=== PATIENT | male | born 1965 | race Caucasian/White ===

== ENCOUNTER 2016-08-16 16:02 | Inpatient (IN) | payer SELFPAY ==
[~2016-08-16] VITALS: Ht 188 cm; Wt 90.5 kg
[~2016-08-16 16:02] MED LIST: ALBU8.5H6 IH; TRAZ50TA15 PO
[2016-08-16] MEDS ORDERED: ONDANSETRON PF 4 MG/2 ML VIAL. IV ONE (16:15)
[2016-08-16] MEDS ORDERED: MULTIVIT INFUSN,ADULT 4,VIT K 10 ML, FOLIC ACID 1 MG, THIAMINE 100 MG in IV NORMAL SALI... IV SCH (16:15)
--- NOTE | 2016-08-16 16:24 | PHYS DOC ---
Past Medical History Past Medical History: COPD, Other Additional Past Medical Histor: ETOH Past Surgical History: Other Additional Past Surgical Histo: BACK AND KNEE SURGERY Alcohol Use: Heavy Drug Use: None Adult General HPI HPI 50 yo male who presents acutely altered after he states he took approximately 18 Xanax tablets and drank some beer approximately one hour prior to arrival. Patient's speech is slurred and difficult to understand. He denies any other illicit drug use. Patient does not appear to be in any acute distress this time. He denies any specific complaints. He is unable to describe why he did this. Review of Systems Review of Systems Constitutional: Denies fever or chills [] Eyes: Denies change in visual acuity, redness, or eye pain [] HENT: Denies nasal congestion or sore throat [] Respiratory: Denies cough or shortness of breath [] Cardiovascular: No additional information not addressed in HPI [] GI: Denies abdominal pain, nausea, vomiting, bloody stools or diarrhea [] : Denies dysuria or hematuria [] Musculoskeletal: Denies back pain or joint pain [] Integument: Denies rash or skin lesions [] Neurologic: Denies headache, focal weakness or sensory changes [] Endocrine: Denies polyuria or polydipsia [] Current Medications Current Medications Current Medications Medications (Trade) Dose Ordered Sig/Lesley Start Time Stop Time Status Last Admin Dose Admin Multivitamins/ Folic Acid/ Thiamine HCl/ Sodium Chloride (Infuvite Adult/ Iv Sodium Chloride 0.9% 1000ml Bag) 1,011.2 ml @ 1,000 mls/ hr Q1H 08/16/16 16:15 Ondansetron HCl 4 mg 4 mg 1X ONCE 08/16/16 16:15 08/16/16 16:16 DC 08/16/16 16:22 4 MG Sodium Chloride (Iv Sodium Chloride 0.9% 1000ml Bag) 1,000 ml @ 1,000 mls/hr 1X ONCE 08/16/16 16:45 08/16/16 17:44 08/16/16 16:22 1,000 MLS/HR Allergies Allergies Allergies Coded Allergies Type Severity Reaction Last Updated Verified No Known Drug Allergies 10/23/13 No Physical Exam Physical Exam Constitutional: Well developed, well nourished, no acute distress, non-toxic appearance. [] HENT: Normocephalic, atraumatic, bilateral external ears normal, oropharynx moist, no oral exudates, nose normal. [] Eyes: PERRLA, EOMI, conjunctiva normal, no discharge. [] Neck: Normal range of motion, no tenderness, supple, no stridor. [] Cardiovascular:Heart rate regular rhythm, no murmur [] Lungs & Thorax: Bilateral breath sounds clear to auscultation [] Abdomen: Bowel sounds normal, soft, no tenderness, no masses, no pulsatile masses. [] Skin: Warm, dry, no erythema, no rash. [] Back: No tenderness, no CVA tenderness. [] Extremities: No tenderness, no cyanosis, no clubbing, ROM intact, no edema. [] Neurologic: Alert and oriented X 2 (person and place), slurred speech, no focal deficits. [] Psychologic: Affect depressed, mood depressed. [] Current Patient Data Vital Signs Vital Signs Date Time Temp Pulse Resp B/P Pulse Ox O2 Delivery O2 Flow Rate FiO2 08/16/16 16:15 98.4 92 28 84/63 98 Room Air 98.4 Lab Values Laboratory Tests Test 08/16/16 16:05 08/16/16 16:35 White Blood Count 6.1x10^3/uL (4.0-11.0) Red Blood Count 4.73x10^6/uL (4.30-5.70) Hemoglobin 15.5g/dL (13.0-17.5) Hematocrit 45.4% (39.0-53.0) Mean Corpuscular Volume 96fL (79-100) Mean Corpuscular Hemoglobin 33pg (25-35) Mean Corpuscular Hemoglobin Concent 34g/dL (31-37) Red Cell Distribution Width 14.3% (11.5-14.5) Platelet Count 314x10^3/uL (140-400) Neutrophils (%) (Auto) 59% (31-73) Lymphocytes (%) (Auto) 31% (24-48) Monocytes (%) (Auto) 7% (0-9) Eosinophils (%) (Auto) 3% (0-3) Basophils (%) (Auto) 1% (0-3) Neutrophils # (Auto) 3.5x10^3uL (1.8-7.7) Lymphocytes # (Auto) 1.9x10^3/uL (1.0-4.8) Monocytes # (Auto) 0.4x10^3/uL (0.0-1.1) Eosinophils # (Auto) 0.2x10^3/uL (0.0-0.7) Basophils # (Auto) 0.1x10^3/uL (0.0-0.2) Sodium Level 142mmol/L (136-145) Potassium Level 4.0mmol/L (3.5-5.1) Chloride Level 105mmol/L (98-107) Carbon Dioxide Level 26mmol/L (21-32) Anion Gap 11 (6-14) Blood Urea Nitrogen 5mg/dL (8-26) L Creatinine 1.0mg/dL (0.7-1.3) Estimated GFR (Cockcroft-Gault) 79.4 BUN/Creatinine Ratio 5 (6-20) L Glucose Level 104mg/dL (70-99) H Calcium Level 8.3mg/dL (8.5-10.1) L Total Bilirubin 0.3mg/dL (0.2-1.0) Aspartate Amino Transferase (AST) 21U/L (15-37) Alanine Aminotransferase (ALT) 30U/L (16-63) Alkaline Phosphatase 51U/L (46-116) Total Protein 7.0g/dL (6.4-8.2) Albumin 3.5g/dL (3.4-5.0) Albumin/Globulin Ratio 1.0 (1.0-1.7) Salicylates Level < 2.8mg/dL (2.8-20.0) L Salicylate Last Dose Date Salicylate Last Dose Time Acetaminophen Level < 2mcg/ml (10-30) L Acetaminophen Last Dose Date Acetaminophen Last Dose Time Ethyl Alcohol Level 179mg/dL (0-10) H Urine Opiates Screen Neg (NEG) Urine Methadone Screen Neg (NEG) Urine Barbiturates Neg (NEG) Urine Phencyclidine Screen Neg (NEG) Urine Amphetamine/Methamphetamine Neg (NEG) Urine Benzodiazepines Screen Pos (NEG) Urine Cocaine Screen Neg (NEG) Urine Cannabinoids Screen Neg (NEG) Urine Ethyl Alcohol Pos (NEG) Laboratory Tests 08/16/16 16:05 Laboratory Tests 08/16/16 16:05 EKG EKG EKG as interpreted by me shows a sinus rhythm with a rate of 96 bpm. Intervals are normal. There are no obvious signs of ischemia. Radiology/Procedures Radiology/Procedures [] Course & Med Decision Making Course & Med Decision Making Pertinent Labs and Imaging studies reviewed. (See chart for details) This is 50-year-old male who apparently overdosed on 18 Xanax tablets with a coingestion of alcohol will be admitted for further evaluation and treatment. A banana bag and Zofran was given. His EKG did not reveal any abnormal findings. Patient will be observed in the department and likely admitted for his overdose. Laboratory workup reveals that he has enzymes diazepam and ethanol in his system. His blood ethanol level is 0.179. CBC and CMP are unremarkable. Patient is given an IV fluid bolus and a banana bag. His blood pressure improved. His mental status has not changed while he was observed in the department. At this time, I believe he is too altered to have a adequate psychiatric assessment and so I'll be admitting him for his mental status changes and he will receive an evaluation for his ongoing ongoing suicidal behavior. I discussed the case with Dr. Ivy who agreed to admit the patient for further evaluation and treatment. Dragon Disclaimer Dragon Disclaimer This electronic medical record was generated, in whole or in part, using a voice recognition dictation system. Departure Departure Impression: Primary Impression: Alcohol intoxication Additional Impressions: Benzodiazepine overdose Suicide attempt Disposition: ADMITTED INPATIENT Admitting Physician: Kusum Ivy Condition: STABLE Referrals: NO PCP (PCP) Problem Qualifiers GIN BUCHANAN DO Aug 16, 2016 16:24
[2016-08-16 16:35] LABS: CALCIUM 8.3 mg/dL (8.5-10.1); GFR 79.4
[2016-08-16 16:39] LABS: ETHANOL 179 mg/dL (0-10)
[2016-08-16 16:41] LABS: ALBUMIN 3.5 g/dL (3.4-5.0); TOTAL BILIRUBIN 0.3 mg/dL (0.2-1.0)
[2016-08-16 16:45] LABS: BASO # 0.1 x10^3/uL (0.0-0.2); BASO % 1 % (0-3); EOS % 3 % (0-3); HEMATOCRIT 45.4 % (39.0-53.0); HEMOGLOBIN 15.5 g/dL (13.0-17.5); LYMPH # 1.9 x10^3/uL (1.0-4.8); LYMPH % 31 % (24-48); MEAN CORPUSCULAR HEMOGLOBIN 33 pg (25-35); MEAN CORPUSCULAR HGB CONC 34 g/dL (31-37); MEAN CORPUSCULAR VOLUME 96 fL (79-100); MONO % 7 % (0-9); NEUT % 59 % (31-73); PLATELET COUNT 314 x10^3/uL (140-400); RED BLOOD COUNT 4.73 x10^6/uL (4.30-5.70); RED CELL DISTRIBUTION WIDTH 14.3 % (11.5-14.5); WHITE BLOOD COUNT 6.1 x10^3/uL (4.0-11.0)
[2016-08-16] MEDS ORDERED: IV NORMAL SALINE 1000ML BAG 1,000 ML IV ONE (16:45)
[2016-08-16 16:54] LABS: BARBITURATES NEG (NEG); BENZODIAZEPINES POS (NEG); CANNABINOIDS NEG (NEG); COCAINE NEG (NEG); METHADONE NEG (NEG); OPIATES NEG (NEG); PHENCYCLIDINE NEG (NEG)
[2016-08-16 16:55] LABS: ETHANOL, URINE POS (NEG)
[2016-08-16] MEDS: IV NORMAL SALINE 1000ML BAG 1,000 ML IV SCH (17:03)
[2016-08-16] MEDS ORDERED: ONDANSETRON PF 4 MG/2 ML VIAL. IV PRN (17:15)
--- NOTE | 2016-08-16 17:48 | ACF ---
Admission Forms Criteria SUBSTANCE ABUSE Clinical Indications for Admission to Inpatient Care (Place 'X' for any and all applicable criteria): Admission is indicated due to ANY ONE of the following(1)(2)(3)(4)(5): [ ]I. Delirium due to alcohol or sedative A withdrawal B ( Also use Delirium Criteria as appropriate)1,6,7 [ ]II. Alcohol or sedative withdrawal with high-risk indicator as manifested by ALL of the following1,3,6,7 [ ]a) Signs of withdrawal as indicated by ANY ONE of the following: [ ]i) Heart rate greater than 100 beats per minute [ ]ii) Nausea or vomiting [ ]iii) Other physical signs of alcohol or sedative withdrawal [ ]iv) Tremor [ ](v) Increased perspiration [ ]b) Elevated risk due to a historical or comorbid factor as indicated by ANY ONE of the following: [ ]i) History of delirium due to alcohol or sedative withdrawal [ ]ii) History of repetitive seizures due to alcohol or sedative withdrawal C [ ]iii) Intrinsic seizure disorder (epilepsy) [ ]iv) [ ]v) Comorbid medical condition that can be dangerously destabilized by alcohol or sedative withdrawal (eg, severe cardiac disease) [ ]III. Severe alcohol or sedative withdrawal that is unmanageable at lower level of care, as manifested by ALL of the following1,3,6,7 [ ]a) Marked signs of withdrawal as indicated by ANY ONE of the following: [ ]i) Heart rate greater than 120 beats per minute [ ]ii) Vomiting [ ]iii) Grossly visible tremor [ ]iv) Profuse perspiration [ ]v) Temperature greater than 38.3 degrees C (101 degrees F) [ ]vi) Other marked physical signs of alcohol or sedative withdrawal [ ]b) Signs of withdrawal which require inpatient treatment as indicated by ANY ONE of the following: [ ]i) Inadequate response to pharmacotherapy in emergency department or other appropriate lower level of care [ ]ii) Lower level of care not feasible or appropriate (eg, unavailable or inappropriate to patient condition or treatment history) [ ]IV. Severely complicated opioid withdrawal that requires oepmnh-[id number] care as manifested by ALL of the following 1,4,7,11 [ ]a) Vomiting or diarrhea due to opioid withdrawal [ ]b) Marked dehydration or electrolyte abnormality that cannot be corrected (to near normal) in an emergency department or other ambulatory setting (eg, serum K<2.5 mEq/L , serum Na <130 mEq/L [X]V. Acute toxicity or instability from substance use requiring inpatient care (eg, altered mental status, respiratory depression) that has had inadequate response to, or is judged inappropriate for, treatment at lower level of care (eg, emergency department, observation care) [ ]. Other inpatient medical or psychiatric care is needed due to risk or comorbidity as indicated by ALL of the following(18): [ ]a) Treatment is needed because of patient risk due to ANY ONE of the following: [ ]i) Medical condition (eg, severe cardiac disease) that requires 24-hour monitoring and treatment due to danger of destabilization by alcohol or sedative withdrawal is present [ ]ii) Imminent danger to self is present due to ANY ONE of the following(19)(20)(21): [ ]1) Imminent risk for recurrence of Suicide attempt or act of serious Harm to self is present as indicated by ALL of the following: [ ]A. There has been very recent Suicide attempt or deliberate act of serious Harm to self. [ ]B. There has not been Sufficient relief of the factors that precipitated the attempt or act. [ ]2) Current plan for suicide or serious Harm to self is present. [ ]3) Command auditory hallucinations for suicide or serious Harm to self are present. [ ]4) Patient has persistent Thoughts of suicide or serious Harm to self that cannot be adequately monitored at lower level of care due to ANY ONE of the following[E]: [ ]A. Insufficient behavioral care is available to meet patient needs (such as required provider or lower level facility is not available). [ ]B. Patient characteristics such as high impulsivity or unreliability are present. [ ]C. Environment does not support recovery. [ ]D. Ready access to lethal means [ ]iii) Imminent danger to others is present due to ANY ONE of the following(19)(23)(24): [ ]1) Imminent risk for recurrence of attempt to seriously Harm another is present as indicated by ALL of the following: [ ]A. There has been very recent attempt to seriously Harm another. [ ]B. There has not been Sufficient relief of factors that precipitated the attempt or act. [ ]2) Current plan for homicide or serious Harm to another is present. [ ]3) Command auditory hallucinations or paranoid delusions contributing to risk for homicide or serious Harm to another are present. [ ]4) Patient has persistent thoughts of homicide or serious Harm to another that cannot be adequately monitored at lower level of care because of ANY ONE of the following[E]: [ ]A. Insufficient behavioral care is available to meet patient needs (such as required provider or lower level facility is not available). [ ]B. High impulsivity or unreliability is present. [ ]C. Environment does not support recovery. [ ]D. Ready access to lethal means [ ]iv) Severe dysfunction in daily living related to substance use disorder as indicated by ANY ONE of the following(33): [ ]a) Extreme deterioration in social interactions (eg , threatening behaviors with little or no provocation) [ ]b) Complete withdrawal from all social interactions [ ]c) Complete neglect of self-care with associated impairment in physical status [ ]d) Extreme disruption in vegetative function (eg, life-sustaining functions such as eating) [ ]e) Complete inability to maintain any appropriate aspect of personal responsibility in any adult roles (eg, occupational, parental ) [ ]v) Other emotional, behavioral, or cognitive symptoms of sufficient severity to preclude ability to engage in recovery without 24-hour monitoring and treatment are present. [ ]vi) Patient requires monitoring due to substance use in combination with medical, psychiatric, or environmental factors that prevent adequate management at lower level of care as indicated by ALL of the following: [ ]1) Significant substance use effects, medical conditions, or psychiatric comorbidities are present as indicated by ANY ONE of the following [ ]A. Substance toxicity or withdrawal requires medical monitoring. [ ]B. Medical comorbidity requires medical monitoring for destabilization due to alcohol or sedative withdrawal. [ ]C. Emotional, behavioral, or cognitive symptoms of sufficient severity to limit or preclude ability to engage in treatment are present. [ ]2) Conditions, barriers, or environmental factors preventing treatment at lower level of care are present as indicated by ANY ONE of the following: [ ]A. Psychiatric comorbidity or opposition to treatment requires 24-hour setting to ensure adherence with medical treatment or adequate motivating interventions. [ ]B. Severe behavioral problems (eg, escalating relapse behaviors, acute psychiatric or substance use crisis, inability to recognize signs and symptoms of relapse ) require 24-hour setting for relapse prevention.[F] [ ]C. Living environment outside of 24-hour setting prevents recovery (eg, abuse, victimization, patient inability to cope). [ ]b Treatment situation and needs are appropriate for inpatient level ( instead of using lower level of care) as indicated by ANY ONE of the following( 25)(26)(27): [ ]i) Patient is unwilling to participate voluntarily and requires treatment (eg, legal commitment) in involuntary unit.(23) [ ]ii) Voluntary treatment at lower level is not feasible (eg, lower level care unavailable or inappropriate for patient condition). [ ]iii) Physical restraint, seclusion, or other involuntary control is needed (eg, actively violent patient for whom treatment in an involuntary unit is deemed necessary in accord with applicable medical and legal criteria).(23) [ ]iv) [id number] medical or nursing care to address symptoms and initiate interventions is required; specific need is identified. Extended stay beyond goal length of stay may be needed for: [ ]a) Onset of delirium [ ]b) Recurrent seizures [ ]c) Persistent severe alcohol or sedative withdrawal [ ]d) Persistent dangerous behavior The original [facility] content created by [employer] has been revised. The portions of the content which have been revised are identified through the use of italic text or in bold, and [facility] has neither reviewed nor approved the modified material. All other unmodified content is copyright [facility]. Please see references footnoted in the original [facility] edition 2016 Admission Criteria Met?: Yes CECY GIRARD Aug 16, 2016 17:48
[2016-08-16] MEDS ORDERED: LORAZEPAM 2 MG/ML VIAL IV PRN (19:15)
[2016-08-16] MEDS ORDERED: ALBUTEROL SULFATE 8GM INHALER. IH SCH (19:15)
[2016-08-16] MEDS ORDERED: ALPRAZOLAM 0.5 MG TABLET PO PRN (19:15)
[2016-08-16] MEDS ORDERED: ZOLPIDEM 5 MG TABLET. PO PRN (19:15)
[2016-08-16 19:26] VITALS: BP 99/65
--- NOTE | 2016-08-16 20:04 | PDOC1 ---
History and Physical Date of Admission Date of Admission DATE: 08/16/16 TIME: 19:59 Identification/Chief Complaint Chief Complaint suicide attempt Source Source: Caregiver, Chart review, Patient History of Present Illness History of Present Illness 50 y.o male with high likelihood of severe depression admitted for another SI. LAst admit was Feb 2016 by a colleague for the same. This time, he tried taking or maybe took already 18 tabs of xanax and alcohol, HE did test positive in UDS and etoh levels are 137 Pt is drowsy but able to talk a bit, VS otherwise ok Pt cant tell me clearly why he did it. I am unable to get any further hx from him,. He did say he does not see a psychiatrist. Looking at Feb admission, his left him ( for 31 yrs?) bec of this issue of his, Past Medical History Cardiovascular: No pertinent hx Pulmonary: COPD Psych: Depression Past Surgical History Past Surgical History: Other (unable to get) Family History Family History: Heart Disease, Hypertension Social History Smoke: No ALCOHOL: heavy Drugs: None Current Problem List Problem List Problems Medical Problems: (1) Alcohol intoxication Status: Acute (2) Benzodiazepine overdose Status: Acute (3) Suicide attempt Status: Acute Problems: Current Medications Current Medications Current Medications Multivitamins/ Folic Acid/ Thiamine HCl/ Sodium Chloride (Infuvite Adult/ Iv Sodium Chloride 0.9% 1000ml Bag) 1,011.2 ml @ 1,000 mls/ hr Q1H IV Last administered on 08/16/16 17:54; Start 08/16/16 at 16:15 Ondansetron HCl 4 mg 4 mg 1X ONCE IV Last administered on 08/16/16 16:22; Start 08/16/16 at 16:15; Stop 08/16/16 at 16:16; Status DC Sodium Chloride (Iv Sodium Chloride 0.9% 1000ml Bag) 1,000 ml @ 1,000 mls/hr 1X ONCE IV Last administered on 08/16/16 16:22; Start 08/16/16 at 16:45; Stop 08/16/16 at 17:44; Status DC Ondansetron HCl 4 mg 4 mg PRN Q8HRS PRN IV NAUSEA/VOMITING; Start 08/16/16 at 17:15; Stop 08/16/16 at 19:08; Status DC Sodium Chloride (Iv Sodium Chloride 0.9% 1000ml Bag) 1,000 ml @ 125 mls/hr Q8H IV ; Start 08/16/16 at 17:03; Stop 08/17/16 at 17:02 Ondansetron HCl 4 mg 4 mg PRN Q6HRS PRN IV NAUSEA/VOMITING; Start 08/16/16 at 19:06 Multivitamins/ Folic Acid/ Thiamine HCl/ Dextrose/Sodium Chloride (Infuvite Adult/ Iv D5% - 1/2 NS) 1,011.2 ml @ 100 mls/ hr DAILY IV ; Start 08/17/16 at 09:00 Alprazolam (Xanax) 0.5 mg Q8H PRN PO ANXIETY / AGITATION; Start 08/16/16 at 19: 15; Stop 08/16/16 at 19:15; Status DC Lorazepam (Ativan) 1 mg PRN Q4HRS PRN IV ANXIETY / AGITATION; Start 08/16/16 at 19:15; Stop 08/16/16 at 19:15; Status DC Chlordiazepoxide (Librium) 25 mg PRN Q6HRS PRN PO ANXIETY / AGITATION; Start at 19:15 Zolpidem Tartrate (Ambien) 5 mg PRN QHS PRN PO INSOMNIA; Start 08/16/16 at 19: 15; Stop 08/16/16 at 19:15; Status DC Albuterol Sulfate (Ventolin Hfa) 2 puff Q4H IH ; Start 08/16/16 at 19:15; Stop 08/16/16 at 19:23; Status DC Trazodone HCl (Desyrel) 50 mg HS PO ; Start 08/16/16 at 21:00 Albuterol Sulfate (Ventolin Neb Soln) 2.5 mg Q4HRS NEB ; Start 08/16/16 at 20:00 Active Scripts Active Reported Trazodone Hcl 50 Mg Tablet 50 Mg PO HS Albuterol Sulfate Hfa Inhaler (Albuterol Sulfate) 8.5 Gm Hfa.aer.ad 2 Inh IH Q4H Allergies Allergies: Coded Allergies: No Known Drug Allergies (Unverified , 10/23/13) ROS Review of System unable to get fully, sleepy, not cooperative to his full extent Physical Exam General: No acute distress HEENT: Atraumatic, PERRLA, EOMI, Mucous membr. moist/pink Lungs: Clear to auscultation, Normal air movement Heart: S1S2, RRR, no thrills, no rubs, no gallops Cardiovascular: S1, S2 Breasts: Normal Abdomen: Normal bowel sounds, Soft, No tenderness, No hepatosplenomegaly, No masses Male Genitals Exam: normal genitalia, normal prostate Rectal Exam: not examined PELVIC: Nml ext genitalia Extremities: No clubbing, No cyanosis, No edema, Normal pulses, No tenderness/ swelling Skin: No rashes, No breakdown, No significant lesion Neuro: Normal gait, Normal speech, Strength at 5/5 X4 ext, Normal tone, Sensation intact, Cranial nerves 3-12 NL, Reflexes 2+ Vitals Vitals Vital Signs Date Time Temp Pulse Resp B/P Pulse Ox O2 Delivery O2 Flow Rate FiO2 08/16/16 19:26 97.2 75 18 99/65 98 Nasal Cannula 2.0 97.2 Labs Labs Laboratory Tests Test 08/16/16 16:05 08/16/16 16:35 White Blood Count 6.1x10^3/uL (4.0-11.0) Red Blood Count 4.73x10^6/uL (4.30-5.70) Hemoglobin 15.5g/dL (13.0-17.5) Hematocrit 45.4% (39.0-53.0) Mean Corpuscular Volume 96fL (79-100) Mean Corpuscular Hemoglobin 33pg (25-35) Mean Corpuscular Hemoglobin Concent 34g/dL (31-37) Red Cell Distribution Width 14.3% (11.5-14.5) Platelet Count 314x10^3/uL (140-400) Neutrophils (%) (Auto) 59% (31-73) Lymphocytes (%) (Auto) 31% (24-48) Monocytes (%) (Auto) 7% (0-9) Eosinophils (%) (Auto) 3% (0-3) Basophils (%) (Auto) 1% (0-3) Neutrophils # (Auto) 3.5x10^3uL (1.8-7.7) Lymphocytes # (Auto) 1.9x10^3/uL (1.0-4.8) Monocytes # (Auto) 0.4x10^3/uL (0.0-1.1) Eosinophils # (Auto) 0.2x10^3/uL (0.0-0.7) Basophils # (Auto) 0.1x10^3/uL (0.0-0.2) Sodium Level 142mmol/L (136-145) Potassium Level 4.0mmol/L (3.5-5.1) Chloride Level 105mmol/L (98-107) Carbon Dioxide Level 26mmol/L (21-32) Anion Gap 11 (6-14) Blood Urea Nitrogen 5mg/dL (8-26) Creatinine 1.0mg/dL (0.7-1.3) Estimated GFR (Cockcroft-Gault) 79.4 BUN/Creatinine Ratio 5 (6-20) Glucose Level 104mg/dL (70-99) Calcium Level 8.3mg/dL (8.5-10.1) Total Bilirubin 0.3mg/dL (0.2-1.0) Aspartate Amino Transf (AST/SGOT) 21U/L (15-37) Alanine Aminotransferase (ALT/SGPT) 30U/L (16-63) Alkaline Phosphatase 51U/L (46-116) Total Protein 7.0g/dL (6.4-8.2) Albumin 3.5g/dL (3.4-5.0) Albumin/Globulin Ratio 1.0 (1.0-1.7) Salicylates Level < 2.8mg/dL (2.8-20.0) Salicylate Last Dose Date Salicylate Last Dose Time Acetaminophen Level < 2mcg/ml (10-30) Acetaminophen Last Dose Date Acetaminophen Last Dose Time Ethyl Alcohol Level 179mg/dL (0-10) Urine Opiates Screen Neg (NEG) Urine Methadone Screen Neg (NEG) Urine Barbiturates Neg (NEG) Urine Phencyclidine Screen Neg (NEG) Urine Amphetamine/Methamphetamine Neg (NEG) Urine Benzodiazepines Screen Pos (NEG) Urine Cocaine Screen Neg (NEG) Urine Cannabinoids Screen Neg (NEG) Urine Ethyl Alcohol Pos (NEG) Laboratory Tests Test 08/16/16 16:05 08/16/16 16:35 White Blood Count 6.1x10^3/uL (4.0-11.0) Red Blood Count 4.73x10^6/uL (4.30-5.70) Hemoglobin 15.5g/dL (13.0-17.5) Hematocrit 45.4% (39.0-53.0) Mean Corpuscular Volume 96fL (79-100) Mean Corpuscular Hemoglobin 33pg (25-35) Mean Corpuscular Hemoglobin Concent 34g/dL (31-37) Red Cell Distribution Width 14.3% (11.5-14.5) Platelet Count 314x10^3/uL (140-400) Neutrophils (%) (Auto) 59% (31-73) Lymphocytes (%) (Auto) 31% (24-48) Monocytes (%) (Auto) 7% (0-9) Eosinophils (%) (Auto) 3% (0-3) Basophils (%) (Auto) 1% (0-3) Neutrophils # (Auto) 3.5x10^3uL (1.8-7.7) Lymphocytes # (Auto) 1.9x10^3/uL (1.0-4.8) Monocytes # (Auto) 0.4x10^3/uL (0.0-1.1) Eosinophils # (Auto) 0.2x10^3/uL (0.0-0.7) Basophils # (Auto) 0.1x10^3/uL (0.0-0.2) Sodium Level 142mmol/L (136-145) Potassium Level 4.0mmol/L (3.5-5.1) Chloride Level 105mmol/L (98-107) Carbon Dioxide Level 26mmol/L (21-32) Anion Gap 11 (6-14) Blood Urea Nitrogen 5mg/dL (8-26) Creatinine 1.0mg/dL (0.7-1.3) Estimated GFR (Cockcroft-Gault) 79.4 BUN/Creatinine Ratio 5 (6-20) Glucose Level 104mg/dL (70-99) Calcium Level 8.3mg/dL (8.5-10.1) Total Bilirubin 0.3mg/dL (0.2-1.0) Aspartate Amino Transf (AST/SGOT) 21U/L (15-37) Alanine Aminotransferase (ALT/SGPT) 30U/L (16-63) Alkaline Phosphatase 51U/L (46-116) Total Protein 7.0g/dL (6.4-8.2) Albumin 3.5g/dL (3.4-5.0) Albumin/Globulin Ratio 1.0 (1.0-1.7) Salicylates Level < 2.8mg/dL (2.8-20.0) Salicylate Last Dose Date Salicylate Last Dose Time Acetaminophen Level < 2mcg/ml (10-30) Acetaminophen Last Dose Date Acetaminophen Last Dose Time Ethyl Alcohol Level 179mg/dL (0-10) Urine Opiates Screen Neg (NEG) Urine Methadone Screen Neg (NEG) Urine Barbiturates Neg (NEG) Urine Phencyclidine Screen Neg (NEG) Urine Amphetamine/Methamphetamine Neg (NEG) Urine Benzodiazepines Screen Pos (NEG) Urine Cocaine Screen Neg (NEG) Urine Cannabinoids Screen Neg (NEG) Urine Ethyl Alcohol Pos (NEG) VTE Prophylaxis Ordered VTE Prophylaxis Devices: Yes VTE Pharmacological Prophylaxi: Yes Assessment/Plan Assessment/Plan 1. Suicide attempt by ingestion of xanax and etoh 2. Heavy etoh drinker (vodka) 3. Depression, major, severe PLAn: CIWA, banana bag 1;1 SW - life crisis consult Ok for diet when ready Supportive meds (except xanax) ER did mention pt has been targeted or accepted at [facility]? YURIY APONTE MD Aug 16, 2016 20:04
[2016-08-16] MEDS: traZODone 50 MG TABLET. PO SCH (21:00)
[2016-08-16] MEDS: ALBUTEROL SULFATE 2.5 MG/3 ML NEBU. NEB SCH ×2 (21:34→23:51)
[2016-08-16 22:48] VITALS: BP 107/56
[2016-08-17] MEDS: traZODone 50 MG TABLET. PO SCH ×2 (00:33→21:43)
[2016-08-17] MEDS: ONDANSETRON PF 4 MG/2 ML VIAL. IV PRN ×2 (00:38→18:27)
[2016-08-17 02:39] VITALS: BP 110/62
[2016-08-17] MEDS: ALBUTEROL SULFATE 2.5 MG/3 ML NEBU. NEB SCH ×6 (03:31→22:16)
[2016-08-17] MEDS: CHLORDIAZEPOXIDE HCL 25 MG CAPSULE PO PRN (05:00)
--- NOTE | 2016-08-17 06:16 | EKG ---
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
[2016-08-17] MEDS: IV NORMAL SALINE 1000ML BAG 1,000 ML IV SCH ×2 (06:35→08:18)
[2016-08-17 07:00] VITALS: BP 114/69
[2016-08-17] MEDS: MULTIVIT INFUSN,ADULT 4,VIT K 10 ML, FOLIC ACID 1 MG, THIAMINE 100 MG in IV DEXTROSE 5 ... IV SCH (08:19)
[2016-08-17 11:00] VITALS: BP 133/93
--- NOTE | 2016-08-17 12:18 | PDOC ---
PROGRESS NOTES Chief Complaint Chief Complaint Suicidal attempt ASSESSMENT AND PLAN: 1. SA with Xanax/EtOH: PAT team jose, d/w Jose Cruz: agrees to in-pt F/U. 1: 1 sitter for now 2. Alcoholism: CIWA, banana bag 3. Depression: severe. start zoloft 4. Prophylaxis: PPI, lovenox Vitals Vitals Vital Signs Date Time Temp Pulse Resp B/P Pulse Ox O2 Delivery O2 Flow Rate FiO2 08/17/16 11:14 Room Air 08/17/16 11:00 98.4 87 18 133/93 95 98.4 08/17/16 03:58 2.0 Physical Exam General: Alert, Oriented X3, Cooperative, No acute distress Heart: Regular rate Lungs: Clear Abdomen: Normal bowel sounds, Soft, No tenderness Extremities: No edema, No tenderness/swelling Skin: No rashes Labs LABS Laboratory Tests Test 08/16/16 16:05 08/16/16 16:35 White Blood Count 6.1x10^3/uL (4.0-11.0) Red Blood Count 4.73x10^6/uL (4.30-5.70) Hemoglobin 15.5g/dL (13.0-17.5) Hematocrit 45.4% (39.0-53.0) Mean Corpuscular Volume 96fL (79-100) Mean Corpuscular Hemoglobin 33pg (25-35) Mean Corpuscular Hemoglobin Concent 34g/dL (31-37) Red Cell Distribution Width 14.3% (11.5-14.5) Platelet Count 314x10^3/uL (140-400) Neutrophils (%) (Auto) 59% (31-73) Lymphocytes (%) (Auto) 31% (24-48) Monocytes (%) (Auto) 7% (0-9) Eosinophils (%) (Auto) 3% (0-3) Basophils (%) (Auto) 1% (0-3) Neutrophils # (Auto) 3.5x10^3uL (1.8-7.7) Lymphocytes # (Auto) 1.9x10^3/uL (1.0-4.8) Monocytes # (Auto) 0.4x10^3/uL (0.0-1.1) Eosinophils # (Auto) 0.2x10^3/uL (0.0-0.7) Basophils # (Auto) 0.1x10^3/uL (0.0-0.2) Sodium Level 142mmol/L (136-145) Potassium Level 4.0mmol/L (3.5-5.1) Chloride Level 105mmol/L (98-107) Carbon Dioxide Level 26mmol/L (21-32) Anion Gap 11 (6-14) Blood Urea Nitrogen 5mg/dL (8-26) Creatinine 1.0mg/dL (0.7-1.3) Estimated GFR (Cockcroft-Gault) 79.4 BUN/Creatinine Ratio 5 (6-20) Glucose Level 104mg/dL (70-99) Calcium Level 8.3mg/dL (8.5-10.1) Total Bilirubin 0.3mg/dL (0.2-1.0) Aspartate Amino Transf (AST/SGOT) 21U/L (15-37) Alanine Aminotransferase (ALT/SGPT) 30U/L (16-63) Alkaline Phosphatase 51U/L (46-116) Total Protein 7.0g/dL (6.4-8.2) Albumin 3.5g/dL (3.4-5.0) Albumin/Globulin Ratio 1.0 (1.0-1.7) Salicylates Level < 2.8mg/dL (2.8-20.0) Salicylate Last Dose Date Salicylate Last Dose Time Acetaminophen Level < 2mcg/ml (10-30) Acetaminophen Last Dose Date Acetaminophen Last Dose Time Ethyl Alcohol Level 179mg/dL (0-10) Urine Opiates Screen Neg (NEG) Urine Methadone Screen Neg (NEG) Urine Barbiturates Neg (NEG) Urine Phencyclidine Screen Neg (NEG) Urine Amphetamine/Methamphetamine Neg (NEG) Urine Benzodiazepines Screen Pos (NEG) Urine Cocaine Screen Neg (NEG) Urine Cannabinoids Screen Neg (NEG) Urine Ethyl Alcohol Pos (NEG) Review of Systems Review of Systems worried about current situation, losing his GIANNI RUFFIN MD Aug 17, 2016 12:18
[2016-08-17 15:03] VITALS: BP 126/79
[2016-08-17 19:00] VITALS: BP 132/76
[2016-08-17] MEDS: SERTRALINE 25 MG TABLET. PO SCH (21:43)
[2016-08-17] MEDS: NICOTINE 21MG PATCH. TD SCH (21:44)
[2016-08-17] MEDS: DO NOT USE 40 MG/0.4 ML DISP.SYRIN SQ SCH (21:45)
[2016-08-17 23:00] VITALS: BP 121/70
[2016-08-18] VITALS (8 sets, daily range): BP systolic 133–170; BP diastolic 90–114
[2016-08-18] MEDS: ALBUTEROL SULFATE 2.5 MG/3 ML NEBU. NEB SCH ×6 (03:16→23:43)
[2016-08-18 04:10] LABS: BASO % 1 % (0-3); EOS % 2 % (0-3); HEMATOCRIT 41.2 % (39.0-53.0); LYMPH # 1.8 x10^3/uL (1.0-4.8); LYMPH % 24 % (24-48); MEAN CORPUSCULAR HEMOGLOBIN 32 pg (25-35); MEAN CORPUSCULAR HGB CONC 34 g/dL (31-37); MEAN CORPUSCULAR VOLUME 95 fL (79-100); MONO % 5 % (0-9); NEUT % 69 % (31-73); PLATELET COUNT 302 x10^3/uL (140-400); RED BLOOD COUNT 4.35 x10^6/uL (4.30-5.70); RED CELL DISTRIBUTION WIDTH 14.2 % (11.5-14.5); WHITE BLOOD COUNT 7.6 x10^3/uL (4.0-11.0)
[2016-08-18 04:47] LABS: ALBUMIN 2.7 g/dL (3.4-5.0); ALBUMIN/GLOBULIN RATIO 0.9 (1.0-1.7); CALCIUM 8.4 mg/dL (8.5-10.1); GFR 79.4; MAGNESIUM 2.1 mg/dL (1.8-2.4); POTASSIUM 3.4 mmol/L (3.5-5.1); TOTAL BILIRUBIN 0.3 mg/dL (0.2-1.0); TOTAL PROTEIN 5.8 g/dL (6.4-8.2)
[2016-08-18] MEDS: PANTOPRAZOLE 40 MG TABLET. PO SCH (08:38)
[2016-08-18] MEDS: NICOTINE 21MG PATCH. TD SCH (08:38)
[2016-08-18] MEDS: MULTIVIT INFUSN,ADULT 4,VIT K 10 ML, FOLIC ACID 1 MG, THIAMINE 100 MG in IV DEXTROSE 5 ... IV SCH (10:24)
--- NOTE | 2016-08-18 13:43 | PDOC ---
PROGRESS NOTES Chief Complaint Chief Complaint Suicidal attempt ASSESSMENT AND PLAN: 1. SA with Xanax/EtOH: denies any ongoing SI. would prefer O/P F/U rather than inpt admit 2. Alcoholism: CIWA, banana bag 3. Depression: severe. started zoloft 4. HTN: worsennig. monitor closely. may need meds to start. 5. Prophylaxis: PPI, lovenox Vitals Vitals Vital Signs Date Time Temp Pulse Resp B/P Pulse Ox O2 Delivery O2 Flow Rate FiO2 08/18/16 11:39 95 Room Air 08/18/16 11:00 98.3 83 18 150/99 98.3 Physical Exam General: Alert, Oriented X3, Cooperative, No acute distress Heart: Regular rate Lungs: Clear Abdomen: Normal bowel sounds, Soft, No tenderness Extremities: No edema Skin: No rashes Labs LABS Laboratory Tests Test 08/18/16 03:00 White Blood Count 7.6x10^3/uL (4.0-11.0) Red Blood Count 4.35x10^6/uL (4.30-5.70) Hemoglobin 14.0g/dL (13.0-17.5) Hematocrit 41.2% (39.0-53.0) Mean Corpuscular Volume 95fL (79-100) Mean Corpuscular Hemoglobin 32pg (25-35) Mean Corpuscular Hemoglobin Concent 34g/dL (31-37) Red Cell Distribution Width 14.2% (11.5-14.5) Platelet Count 302x10^3/uL (140-400) Neutrophils (%) (Auto) 69% (31-73) Lymphocytes (%) (Auto) 24% (24-48) Monocytes (%) (Auto) 5% (0-9) Eosinophils (%) (Auto) 2% (0-3) Basophils (%) (Auto) 1% (0-3) Neutrophils # (Auto) 5.2x10^3uL (1.8-7.7) Lymphocytes # (Auto) 1.8x10^3/uL (1.0-4.8) Monocytes # (Auto) 0.4x10^3/uL (0.0-1.1) Eosinophils # (Auto) 0.2x10^3/uL (0.0-0.7) Basophils # (Auto) 0.0x10^3/uL (0.0-0.2) Sodium Level 144mmol/L (136-145) Potassium Level 3.4mmol/L (3.5-5.1) Chloride Level 109mmol/L (98-107) Carbon Dioxide Level 25mmol/L (21-32) Anion Gap 10 (6-14) Blood Urea Nitrogen 9mg/dL (8-26) Creatinine 1.0mg/dL (0.7-1.3) Estimated GFR (Cockcroft-Gault) 79.4 BUN/Creatinine Ratio 9 (6-20) Glucose Level 115mg/dL (70-99) Calcium Level 8.4mg/dL (8.5-10.1) Magnesium Level 2.1mg/dL (1.8-2.4) Total Bilirubin 0.3mg/dL (0.2-1.0) Aspartate Amino Transf (AST/SGOT) 14U/L (15-37) Alanine Aminotransferase (ALT/SGPT) 21U/L (16-63) Alkaline Phosphatase 41U/L (46-116) Total Protein 5.8g/dL (6.4-8.2) Albumin 2.7g/dL (3.4-5.0) Albumin/Globulin Ratio 0.9 (1.0-1.7) Review of Systems Review of Systems feels a lot better. eager to learn options about treatment of EtOH GIANNI RUFFIN MD Aug 18, 2016 13:42
[2016-08-18] MEDS ORDERED: METOPROLOL TART IMMED RELEASE 25 MG TABLET PO ONE (17:00)
[2016-08-18] MEDS: traZODone 50 MG TABLET. PO SCH (21:27)
[2016-08-18] MEDS: SERTRALINE 25 MG TABLET. PO SCH (21:28)
[2016-08-18] MEDS: DO NOT USE 40 MG/0.4 ML DISP.SYRIN SQ SCH (21:28)
[2016-08-19 03:11] VITALS: BP 155/98
[2016-08-19] MEDS: ALBUTEROL SULFATE 2.5 MG/3 ML NEBU. NEB SCH ×3 (03:24→12:49)
[2016-08-19] MEDS: PANTOPRAZOLE 40 MG TABLET. PO SCH (06:10)
[2016-08-19 07:13] VITALS: BP 168/110
[2016-08-19] MEDS: CHLORDIAZEPOXIDE HCL 25 MG CAPSULE PO PRN (08:36)
[2016-08-19] MEDS: MULTIVIT INFUSN,ADULT 4,VIT K 10 ML, FOLIC ACID 1 MG, THIAMINE 100 MG in IV DEXTROSE 5 ... IV SCH (08:37)
[2016-08-19] MEDS: NICOTINE 21MG PATCH. TD SCH (08:37)
[2016-08-19] MEDS ORDERED: LISINOPRIL 10 MG TABLET PO SCH (09:00)
[2016-08-19 11:42] VITALS: BP 150/101
--- NOTE | 2016-08-19 11:50 | PDOC ---
PROGRESS NOTES Chief Complaint Chief Complaint Suicide attempt ASSESSMENT AND PLAN: 1. SA with Xanax/EtOH: denies any ongoing SI. would prefer O/P F/U rather than inpt admit 2. Alcoholism: CIWA, banana bag 3. Depression: severe. started zoloft 4. HTN: ongoing. lisinopril started today 5. Prophylaxis: PPI, lovenox 6. Dispo: to home today Vitals Vitals Vital Signs Date Time Temp Pulse Resp B/P Pulse Ox O2 Delivery O2 Flow Rate FiO2 08/19/16 11:42 98.1 78 12 150/101 97 Room Air 98.1 Physical Exam General: Alert, Oriented X3, Cooperative, No acute distress Heart: Regular rate Lungs: Clear Abdomen: Normal bowel sounds, Soft, No tenderness Extremities: No edema Skin: No rashes Review of Systems Review of Systems no abd pain, no tremors, no CP SOB. states he feels good mentally GIANNI RUFFIN MD Aug 19, 2016 11:50
[2016-08-19] MEDS ORDERED: LISI10TA2 PO (13:47)
[2016-08-19] MEDS ORDERED: SERT50TA PO (13:47)
--- NOTE | 2016-08-20 03:17 | DS ---
DATE OF DISCHARGE: 08/19/2016 CHIEF COMPLAINT: Suicidal attempt with Xanax overdose. HOSPITAL COURSE: The patient is a 50-year-old gentleman with alcoholism, who presented after a binge drinking with ingestion of greater than 20 Xanax tablets that he had for anxiety when quitting drinking. At the time, he pronounced that he was indeed trying to kill himself. The PAT team was involved and felt that he was significantly depressed and could benefit from inpatient admission for both depression as well as substance abuse. However, as time progressed while he detoxicated from alcohol, the patient became more clear thinking, mood stabilized, and the patient stated that he no longer felt suicidal and he would prefer outpatient placement. Without any further symptoms from alcohol withdrawal, he was discharged to home with followup with Psychiatry. PHYSICAL EXAMINATION: Please refer to note from same day. DISCHARGE DIAGNOSES: Suicide attempt with Xanax overdose, alcoholism. DISCHARGE DISPOSITION: home DISCHARGE CONDITION: stable DISCHARGE MEDICATIONS: Please refer to MAR. DISCHARGE INSTRUCTIONS: The patient will follow up with outpatient Psychiatry as advised PARRIS. GIANNI RUFFIN MD DR: KAVON/nts JOB#: [id number] / [id number]
== END 2016-08-19 14:43 | disposition home or self-care (01) | DRG 917 ==
LOC: ER 16:02 → 6 SOUTH 17:02
PROVIDERS: ADMIT Internal Medicine; ATTEND Internal Medicine
DX: T42.4X2A Poisoning by benzodiazepines, intentional self-harm, initial encounter (principal); G92 Toxic encephalopathy; F32.9 Major depressive disorder, single episode, unspecified; F41.9 Anxiety disorder, unspecified; I10 Essential (primary) hypertension; F10.129 Alcohol abuse with intoxication, unspecified; J44.9 Chronic obstructive pulmonary disease, unspecified; Z82.49 Family history of ischemic heart disease and other diseases of the circulatory system; Y92.89 Other specified places as the place of occurrence of the external cause
CPT/HCPCS: 36415; 80053; 83735; 85027; 93005; 94640; 96361; 96374; 96375; 99406; G0480; G0481; G6038; J1650; J2405; J7030; 80196; 99285-25

== ENCOUNTER → 2016-11-25 | Outpatient (CLI) | payer OTHER ==
[~2016-11-25] MED LIST changes: +LISI10TA2 PO; +SERT50TA PO
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
== END | disposition home or self-care (01) ==
LOC: KCIC MRI 12:22
PROVIDERS: ATTEND Family Medicine
DX: M48.02 Spinal stenosis, cervical region (principal); M47.892 Other spondylosis, cervical region
CPT/HCPCS: 72141

== ENCOUNTER 2019-08-19 15:10 | Emergency (ER) | payer MEDICARE ==
[~2019-08-19] VITALS: Ht 182.9 cm; Wt 200.0 kg
[~2019-08-19 15:10] MED LIST changes: +TRAZ-118 PO; -TRAZ50TA15 PO
[2019-08-19] MEDS ORDERED: MULTIVIT INFUSN,ADULT 4,VIT K 10 ML, THIAMINE INJ 100 MG, FOLIC ACID INJ 1 MG in IV NOR... IV ONE (16:30)
[2019-08-19] MEDS ORDERED: ONDANSETRON PF 4 MG/2 ML VIAL. IV ONE (16:30)
[2019-08-19 16:31] LABS: BARBITURATES NEG (NEG); BENZODIAZEPINES NEG (NEG); CANNABINOIDS NEG (NEG); COCAINE NEG (NEG); METHADONE NEG (NEG); OPIATES POS (NEG); PHENCYCLIDINE NEG (NEG)
[2019-08-19 16:39] LABS: AMPHETAMINE/METHAMPHETAMINE NEG (NEG)
[2019-08-19 16:45] LABS: BASO # 0.1 x10^3/uL (0.0-0.2); BASO % 1 % (0-3); EOS % 1 % (0-3); HEMATOCRIT 41.5 % (39.0-53.0); HEMOGLOBIN 14.3 g/dL (13.0-17.5); LYMPH # 1.6 x10^3/uL (1.0-4.8); LYMPH % 27 % (24-48); MEAN CORPUSCULAR HEMOGLOBIN 32 pg (25-35); MEAN CORPUSCULAR HGB CONC 34 g/dL (31-37); MEAN CORPUSCULAR VOLUME 94 fL (79-100); MONO # 0.5 x10^3/uL (0.0-1.1); MONO % 9 % (0-9); NEUT # 3.8 x10^3/uL (1.8-7.7); NEUT % 62 % (31-73); PLATELET COUNT 480 x10^3/uL (140-400); RED BLOOD COUNT 4.41 x10^6/uL (4.30-5.70); RED CELL DISTRIBUTION WIDTH 13.8 % (11.5-14.5)
[2019-08-19 16:46] LABS: CALCIUM 8.4 mg/dL (8.5-10.1); CREATININE 0.7 mg/dL (0.7-1.3); GFR 118.4; POTASSIUM 3.9 mmol/L (3.5-5.1)
[2019-08-19 16:51] LABS: ALBUMIN 3.5 g/dL (3.4-5.0); TOTAL BILIRUBIN 0.2 mg/dL (0.2-1.0)
[2019-08-19 16:53] LABS: ACETAMIN 2.5 mcg/ml (10-30); ETHANOL 127 mg/dL (0-10); SALIC 4.4 mg/dL (2.8-20.0)
[2019-08-19 16:59] LABS: CREATINE KINASE 43 U/L (39-308)
--- NOTE | 2019-08-19 17:42 | RAD ---
CHEST AP ONLY History: Chest tightness Comparison: October 23, 2013 Findings: Single view of the chest is submitted. There is no infiltrate, pneumothorax, or effusion. The pericardial cardiac silhouette is within normal limits in size. There is cervical fusion hardware not fully included. Impression: 1. There is no radiographic evidence of acute cardiopulmonary disease. Electronically signed by: Faraz Miller MD (08/19/2019 5:40 PM) [facility]
[2019-08-19] MEDS ORDERED: OXYC-317 PO (18:11)
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
[2019-08-19 18:16] VITALS: BP 141/83
--- NOTE | 2019-08-20 18:17 | EKG ---
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
== END 2019-08-19 18:21 | disposition home or self-care (01) ==
LOC: ER 15:10
DX: F10.20 Alcohol dependence, uncomplicated (principal); Y90.6 Blood alcohol level of 120-199 mg/100 ml; F11.20 Opioid dependence, uncomplicated; R07.89 Other chest pain; R06.02 Shortness of breath; G89.29 Other chronic pain; J44.9 Chronic obstructive pulmonary disease, unspecified; F17.200 Nicotine dependence, unspecified, uncomplicated
CPT/HCPCS: 36415; 71045; 80053; 80307; 80329; 82553; 84484; 85025; 93005; 96365; 96375; 99285; G0480; J2405; J3411; J3490; J7030